=== PATIENT | male | born 1990 | race Caucasian/White ===

== ENCOUNTER 2016-11-10 14:27 | Emergency (ER) | payer SELFPAY ==
[~2016-11-10] VITALS: Ht 177.8 cm; Wt 90.0 kg
[2016-11-10 14:36] VITALS: BP 144/70
== END 2016-11-10 16:30 | disposition home or self-care (01) ==
LOC: EMS 14:28
DX: T63.441A Toxic effect of venom of bees, accidental (unintentional), initial encounter (principal); L29.9 Pruritus, unspecified; Y92.89 Other specified places as the place of occurrence of the external cause
CPT/HCPCS: 99282